=== PATIENT | female | born 1935 | race Caucasian/White ===

== ENCOUNTER 2017-04-21 08:07 | Outpatient (CLI) | payer MEDICARE, OTHER ==
[2017-04-21 10:58] LABS: Hematocrit 43.4 % (36.0-47.0); Red Blood Cell (RBC) Count 4.82 mill/uL (4.20-5.40); White Blood Cell (WBC) Count 4.5 thou/uL (4.8-10.8)
[2017-04-21 11:10] LABS: Prothrombin Time 13.4 SEC (12.0-14.7)
[2017-04-21 11:25] LABS: Anion Gap 12 mmol/L (10-20); BUN (Urea Nitrogen) 12 mg/dL (9.8-20.1); Calc. Creatinine Clearance 0 mL/min (70-130); Calcium 9.7 mg/dL (7.8-10.44); Carbon Dioxide 25 mmol/L (23-31); Chloride 105 mmol/L (98-107); Estimated GFR-MDRD 80
[2017-04-21 11:33] LABS: Bilirubin Negative (Negative); Blood, Urine Negative (Negative); Glucose, Urine (Dipstick) Negative (Negative); Ketone, Urine Negative (Negative); Nitrite Negative (Negative); Protein, Urine (Dipstick) Negative (Neg-Trace); Urobilinogen 0.2 mg/dL (0.2-1.0)
[2017-04-21 11:38] LABS: Bacteria/HPF None Seen HPF (None Seen); Hyaline Casts/LPF 0-3 HYALINE CAST LPF (0-3 Hyaline); RBC/HPF 0-3 HPF (0-3); Squamous Epithelial None Seen HPF (0-3); WBC/HPF 0-3 HPF (0-3)
== END 2017-04-21 08:08 | disposition home or self-care (01) ==
LOC: LABBT 08:07
PROVIDERS: ATTEND Orthopaedic Surgery
DX: Z01.818 Encounter for other preprocedural examination (principal); M19.012 Primary osteoarthritis, left shoulder
CPT/HCPCS: 80048; 81001; 85027; 85610; 86850; 86900; 86901; 87081; 93005; 93010

== ENCOUNTER 2017-04-21 08:30 | Inpatient (IN) | payer MEDICARE, OTHER ==
[2017-04-21 08:28] VITALS: BMI 35.6
[2017-04-23] MEDS ORDERED: Tranexamic Acid 1,000 MG/100 ML BAG ONE ×2 (06:08→10:05)
[2017-04-23] MEDS ORDERED: Ropivacaine 0.2% HCl/PF 20 ML ONE (06:27)
[2017-04-23] MEDS ORDERED: Lidocaine 1% (PF) 30 ML VIAL ONE (06:27)
[2017-04-23] MEDS ORDERED: Fentanyl 100 MCG/2 ML VIAL ONE ×2 (06:27→10:35)
[2017-04-23] MEDS ORDERED: Midazolam HCl 2 mg/2 ml Vial ONE (06:27)
[2017-04-23] MEDS ORDERED: traMADol HCl 50 MG TAB PO PRN (07:13)
[2017-04-23] MEDS ORDERED: Ketorolac Tromethamine 30 MG/ML VIAL IVP PRN (07:13)
[2017-04-23] MEDS ORDERED: Promethazine HCl 25 MG/ML VIAL IM PRN ×2 (07:13→08:04)
[2017-04-23] MEDS ORDERED: Ropivacaine 0.2% 550 ML 550 ML NERVE BLCK SCH (07:13)
[2017-04-23] MEDS ORDERED: Zolpidem Tartrate 5 MG TAB PO PRN (07:13)
[2017-04-23] MEDS ORDERED: Ondansetron HCl/PF 4 MG/2 ML Vial IVP PRN ×2 (07:13→08:04)
[2017-04-23] MEDS ORDERED: HYDROcodone/Acetaminophen 7.5/325 mg Tablet PO PRN (07:16)
--- NOTE | 2017-04-23 07:25 | HP ---
CHIEF COMPLAINT: Left shoulder pain. HISTORY OF PRESENT ILLNESS: Ms. Bender is a pleasant right hand dominant female. Pain can be 8-9/10, painful last 2 years. She describes the pain as constant, severe pain with elevation, external rotation, pain is worse with activity. Prior treatment and then says some relief. She has no injury. She has some weakness. Denies history of shoulder and neck pain. The patient denied a cardiac history, no shortness of breath, but did have a positive EKG for atrial fibrillation. PAST MEDICAL HISTORY: Atrial fibrillation, pain in the left arm and hands, past osteoporosis. PAST SURGICAL HISTORY: None. CURRENT MEDICATIONS: Calcium, fish oil, vitamin B complex, vitamins, aspirin 81 mg. ALLERGIES: No known drug allergies. SOCIAL HISTORY: Nonsmoker, nondrinker. [place] lady that lives in the [facility]. PHYSICAL EXAMINATION: GENERAL: Alert and oriented female in no acute distress, resting comfortably in bed. EXTREMITIES: The patient had limited motion, elevation 40 and ER 20. She has got intact deltoid, her rotator cuff strength is 4-5. The patient has positive Spurling's, positive Knowles, neurovascularly intact, 2+ radial pulse. X-rays showed a grossly deformed, osteophytes space with B1 deformity. IMPRESSION: 1. Left shoulder osteoarthritis. 2. Atrial fibrillation. ASSESSMENT AND PLAN: The patient had a discussion with her primary care provider as well as a geological science teacher at [facility] about operative risks and benefits of the left shoulder as well as medical management based on her EKG findings. The patient's family desired to proceed with surgery. She has left shoulder arthritis. I discussed with her family the risks and benefits of a left total shoulder versus reverse shoulder. I discussed with biceps tenodesis. I discussed that I would perform a reverse if I felt the rotator cuff insufficient. I was concerned about its potential ability to repair or heal or potential risk of tearing or it looked atrophied or damaged in any way. Given the patient age this is the likely plan of action. She understands the duration of implants life expectancy, she understands I would perform biceps tenodesis, risk of destiny deformity. She understands risks and benefits of surgery, pain, scar, bleeding, infection, damage to vital structures, decreased range of motion, strength, and deltoid pain, fracture, destiny deformity, loss of life or limb. The patient understands the risks and benefits. We will take her to the operating suite for left shoulder replacement and biceps tenotomy. ELLEN
[2017-04-23] MEDS ORDERED: PHENYLEPHRINE-NS 100 MCG/ML 10 ML SYRINGE ONE (07:34)
[2017-04-23] MEDS ORDERED: ePHEDrine/0.9% NaCl/PF SYRINGE 50 mg/10 ml ONE (07:34)
[2017-04-23] MEDS ORDERED: Glycopyrrolate 0.2 MG/ML 5 ML SYRINGE ONE (07:34)
[2017-04-23] MEDS ORDERED: Propofol 200 MG/20 ML VIAL ONE (07:34)
[2017-04-23] MEDS ORDERED: Ondansetron HCl/PF 4 MG/2 ML Vial ONE (07:34)
[2017-04-23] MEDS ORDERED: Promethazine HCl 25 MG/ML VIAL SLOW IVP PRN (08:04)
[2017-04-23] MEDS ORDERED: Tranexamic Acid 1,000 MG in Sodium Chloride 0.9% 100 ML IVPB SCH (09:30)
[2017-04-23] MEDS ORDERED: Acetaminophen 650 MG Suppository PR PRN (09:58)
[2017-04-23] MEDS ORDERED: Milk Of Magnesia 30 ML UDCUP PO PRN (10:31)
[2017-04-23] MEDS ORDERED: Acetaminophen 325 MG TAB PO PRN (10:31)
[2017-04-23] MEDS ORDERED: Bisacodyl 10 MG SUPP PR PRN (10:31)
--- NOTE | 2017-04-23 10:53 | OP ---
DATE OF PROCEDURE: 04/23/2017 PREOPERATIVE DIAGNOSIS: 1. Left shoulder osteoarthritis. 2. Biceps tendonopathy. POSTOPERATIVE DIAGNOSES: 1. Left shoulder osteoarthritis, insufficient cuff. 2. Biceps tendonopathy. PROCEDURE PERFORMED: 1. Left reverse shoulder arthroplasty. 2. Open biceps tenodesis. STAFF: Palmer Andrew M.D. CLEANER OPERATOR: Efren Crabtree PA-C. ANESTHESIA: Jeff. The patient received general endotracheal intubation interscalene block. ESTIMATED BLOOD LOSS: 300 mL. TOURNIQUET TIME: None. IMPLANTS: A Tornier 25 mm baseplate, 2 locking, 2 nonlocking screws, 36 mm eccentric sphere, 2B fle xed stem, 0 high offset tray and a 6 mm poly insert. ANTIBIOTICS: Two grams Ancef, TXA 1 gram. COMPLICATIONS: Partial tearing of the anterior fibers of deltoid. HISTORY OF PRESENT ILLNESS: Ms. Bender is an 82-year-old female who presented to me with left should er pain for over 2 years. The patient had active elevation of 40 degrees, external rotation of 20 d egrees. She did have cuff strength, but had minimal range of motion. The patient at 82, I discusse d with the family the risks and benefits of a left total shoulder versus reverse shoulder arthroplas ty, biceps tenodesis. I discussed that given the patient's age, I am always concerned about potenti al cuff rupture in an arthritic shoulder with a total shoulder. I discussed that the patient might benefit better from a reverse shoulder arthroplasty. I said I would perform a total shoulder replac ement, biceps tenodesis. They understood the risks and benefits of both procedures to include pain, scar, bleeding, infection, damage to vital structures, decreased range of motion or strength, need for further surgeries, loss of life or limb, infection, need for revision surgery, life expectancy o f implant to be approximately 10 years. They understood these risks and benefits and elected to pro ceed. The patient had been cleared by her primary care provider and had a conversation with her cardiologi st for her new onset atrial fibrillation. They elected to treat it after completion of surgery. PROCEDURE NOTE: After timeout was performed, the patient's left upper extremity designated as the o perative site, based on sight, consents. She was placed in a beach chair position. The patient's l eft shoulder was prepped and draped in sterile fashion. A deltopectoral incision was made. The olgai n was taken medially, came down through and came from the conjoint tendon, exposed the biceps, took down the patient's subscapularis, which was ratty and thin anteriorly as well as some significant os teophyte prominence. We took the capsule off the inferior aspect of the neck, removed osteophytes t o expose the neck. I see her cuff was intact, but there was some capsular that had been released, a nd the cuff did look thin. We cut at our B cut for our stem, removed the osteophytes. I looked at the head. Given the patient's look of her cuff, I was concern about future rupture. Given the cornelius ent is 82 years old I felt that it would be best to perform a reverse as a primary procedure. I the n machined our, we placed our center guide, broached and placed a 3B stem, placed a nail, we moved t he shoulder. The patient was exposed the glenoid. We then moved and we let 360 degree release of t he labrum excised the biceps stump. After removing this, we then placed our center hole inferiorly for an A25 stem. I felt that we still had some inferior osteophyte versus glenoid. I felt that it would be best to place a high offset glenosphere. We then placed our larger drill bit, reamed and c leaned up the glenosphere. We then placed our baseplate which was tapped into place, the patient domínguez d 4 screws placed, 2 anterior locking, 2 nonlocking inferior nonlocking we then placed our 2 mm off baseplate into place, screwed it into position. We then dislocated the shoulder back into position for reaming. We could not reduce it therefore, we made a 3 mm cut right down at the base of the cuf f, reamed. We ended up placing a 2B stem which we trialed and reduced, had good reduction, I felt t hat I liked the overall alignment and position, we closed with this, we removed, we placed our final implant, reduced it into position. We closed the subscapularis with #5 Ethibond, tenodesed the bic eps into the difference. We did not close the rotator interval to tighten the shoulder. We then wa shed, closed the rent that we had made in the deltoid with Vicryl to close down a scar plane. We cl osed the deltopectoral interval subcu and placed hay. The patient will begin elbow range of motion, wrist, and hand motion. The patient will follow up in 2 weeks for hay and will be admitted overnight for pain control. She is on aspirin tomorrow.
--- NOTE | 2017-04-23 12:24 | RAD ---
TWO VIEWS LEFT SHOULDER: Date: 04-23-17 Comparison: None. History: Left total shoulder arthroplasty. FINDINGS: There is a left shoulder arthroplasty present. No evidence for dislocation or hardware failure. Post -operative gas and post-operative cutaneous stables are noted. IMPRESSION: Status post left total shoulder arthroplasty. POS: [facility]
[2017-04-23] MEDS: Dextrose 5 %-0.45 % NaCl 1,000 ML IV SCH (17:00)
[2017-04-23] MEDS: traMADol HCl 50 MG TAB PO PRN (18:21)
[2017-04-23] MEDS: Stress 600 With Zinc 1 TAB PO SCH (20:37)
[2017-04-23] MEDS: HYDROcodone/Acetaminophen 7.5/325 mg Tablet PO PRN (20:37)
[2017-04-23] MEDS: Prenatal Vitamin 1 TAB PO SCH (20:37)
[2017-04-23] MEDS: Famotidine 20 MG TAB PO SCH (20:38)
[2017-04-23] MEDS: Calcium Carbonate + Vit D 1 TAB PO SCH (20:38)
[2017-04-24] MEDS: HYDROcodone/Acetaminophen 7.5/325 mg Tablet PO PRN ×2 (00:52→05:18)
[2017-04-24] MEDS: Dextrose 5 %-0.45 % NaCl 1,000 ML IV SCH (05:14)
[2017-04-24 06:10] LABS: Hematocrit 36.7 % (36.0-47.0)
[2017-04-24] MEDS: Fentanyl 100 MCG/2 ML VIAL SLOW IVP PRN (07:48)
[2017-04-24] MEDS: Famotidine 20 MG TAB PO SCH ×2 (07:48→20:01)
[2017-04-24] MEDS: Aspirin 325 MG TAB PO SCH (07:49)
[2017-04-24] MEDS ORDERED: Fentanyl 100 MCG/2 ML VIAL ONE (11:32)
[2017-04-24] MEDS: Calcium Carbonate + Vit D 1 TAB PO SCH (20:01)
[2017-04-24] MEDS: Prenatal Vitamin 1 TAB PO SCH (20:01)
[2017-04-24] MEDS: Stress 600 With Zinc 1 TAB PO SCH (20:01)
[2017-04-24] MEDS: traMADol HCl 50 MG TAB PO PRN (22:07)
[2017-04-25] MEDS: Fentanyl 100 MCG/2 ML VIAL SLOW IVP PRN (00:05)
[2017-04-25] MEDS: Dextrose 5 %-0.45 % NaCl 1,000 ML IV SCH ×2 (00:48→08:41)
[2017-04-25 07:41] VITALS: BP 137/88; TEMP 98
[2017-04-25] MEDS: Aspirin 325 MG TAB PO SCH (08:31)
[2017-04-25] MEDS: Famotidine 20 MG TAB PO SCH (08:31)
[2017-04-25] MEDS: traMADol HCl 50 MG TAB PO PRN (08:37)
== END 2017-04-25 10:40 | disposition home or self-care (01) | DRG 483 ==
LOC: SURG A 04-23 05:40 → SURG B 04-23 10:48
PROVIDERS: ADMIT Orthopaedic Surgery; ATTEND Orthopaedic Surgery
PROC: 0RRK00Z Replacement of Left Shoulder Joint with Reverse Ball and Socket Synthetic Substitute, Open Approach (ICD-10-PCS; principal; 2017-04-23)
PROC: 3E0T3BZ Introduction of Anesthetic Agent into Peripheral Nerves and Plexi, Percutaneous Approach (ICD-10-PCS; 2017-04-23)
DX: M19.012 Primary osteoarthritis, left shoulder (principal); I48.91 Unspecified atrial fibrillation
CPT/HCPCS: 36415; 80048; 81001; 85014; 85018; 85027; 85610; 86850; 86900; 86901; 87081; 93005; 93010; A4306; G8978-GP-CJ; G8979-GP-CI; G8987-GO-CK; G8988-GO-CI; J2001; J2250; J2405; J2704; J2795; J3010

== ENCOUNTER 2017-04-29 13:17 | Inpatient (IN) | payer MEDICARE, OTHER ==
[2017-04-29] MEDS ORDERED: ISOVUE-370 76%-LOCM 1 ML ONE (13:32)
[2017-04-29] MEDS ORDERED: Metoprolol Tartrate 5 MG/5 ML VIAL ONE (13:41)
[2017-04-29] MEDS ORDERED: Metoprolol Tartrate 50 MG TAB ONE (13:41)
[2017-04-29 13:56] LABS: #Basophils 0.1 thou/uL (0.0-0.2); #Eosinphils 0.1 thou/uL (0.0-0.7); #Lymphocytes 1.8 thou/uL (1.20-3.40); #Monocytes 0.7 thou/uL (0.11-0.59); #Neutrophils 4.8 thou/uL (1.40-6.50); %Basophils 0.7 % (0.0-1.0); %Eosinophils 1.6 % (0.0-10.0); %Lymphocytes 24.2 % (21.0-51.0); %Monocytes 9.6 % (0.0-10.0); Hematocrit 39.5 % (36.0-47.0); Mean Platelet Volume 7.5 fL (7.4-10.4); Red Blood Cell (RBC) Count 4.43 mill/uL (4.20-5.40); White Blood Cell (WBC) Count 7.5 thou/uL (4.8-10.8)
[2017-04-29 14:28] LABS: ALT (SGPT) 20 U/L (8-55); AST (SGOT) 35 U/L (5-34); Alkaline Phosphatase 78 U/L (40-150); Anion Gap 12 mmol/L (10-20); BUN (Urea Nitrogen) 13 mg/dL (9.8-20.1); Bilirubin, Total 0.7 mg/dL (0.2-1.2); CK (CPK) 98 U/L (29-168); Calc. Creatinine Clearance 0 mL/min (70-130); Calcium 9.3 mg/dL (7.8-10.44); Carbon Dioxide 30 mmol/L (23-31); Chloride 97 mmol/L (98-107); Estimated GFR-MDRD 77; Globulin 2.9 g/dL (2.4-3.5); Lipase 22 U/L (8-78); Magnesium 2.1 mg/dL (1.6-2.6); Protein, Total 6.5 g/dL (6.0-8.3)
[2017-04-29 14:31] LABS: Troponin I 0.082 ng/mL (< 0.028)
--- NOTE | 2017-04-29 15:02 | RAD ---
ONE VIEW CHEST: History: Chest tightness and difficulty breathing. Left shoulder surgery on . Comparison: None. FINDINGS: Portable upright chest demonstrates an enlarged cardiac silhouette. The pulmonary vessels and hilum are normal. Elevation of the left hemidiaphragm with blunting of the left costophrenic angle. Adequa te aeration of the upper lungs. No pneumothorax or osseous abnormalities. IMPRESSION: 1. Cardiomegaly. 2. Pleural and parenchymal changes of the left lung base. A component of atelectasis is favored give n elevation of the left hemidiaphragm. Continued surveillance is recommended. POS: [facility]
[2017-04-29] MEDS ORDERED: Diltiazem HCl 125 MG, Admixture Fee 1 EACH in Sodium Chloride 0.9% 100 ML IVPB SCH (15:30)
[2017-04-29] MEDS ORDERED: Enoxaparin Sodium 100 MG/ML SYRINGE ONE (15:38)
--- NOTE | 2017-04-29 16:08 | CT ---
CT ANGIOGRAM OF THE CHEST: History: Substernal chest pain. Shortness of breath. Comparison: None. Technique: CT angiogram of the chest is performed in the axial plane. Coronal and bilateral oblique 3D reformatted images are submitted. FINDINGS: No mediastinal mass, lymphadenopathy, or hematoma. Heart is enlarged. No significant pericardial flu id. Suboptimal evaluation of the aorta and upper solid organs due to timing of bolus. Small bilateral pleural effusions with dependent atelectatic changes. No suspicious masses or consol idation. No pneumothorax. Trachea and central bronchi are patent. There are no osteoblastic or osteolytic lesions. There is adequate contrast opacification of the pulmonary arterial system at the level of the segmen darwin arteries. There is a large saddle thrombus involving the distal/terminal left main pulmonary art regina. The thrombus extends into the lobar, segmental branches involving the left upper lobe, left low er lobe. Additional thrombus is noted in the right upper lobe, middle lobe and right lower lobe segm ental branches. IMPRESSION: 1. Bilateral pulmonary emboli as detailed above. 2. Exam discussed with Dr. Cazares 04-29-17 at 3:33 p.m. Code CR POS: [facility]
--- NOTE | 2017-04-29 16:55 | HP ---
PRIMARY CARE PHYSICIAN: Dr. Александр Steiner. REASON FOR ADMISSION: Bilateral pulmonary embolism, atrial fibrillation with rapid ventricular resp onse and chest pain. HISTORY OF PRESENT ILLNESS: An 82-year-old female with a history of atrial fibrillation, which was recently diagnosed. She had recently surgery for left shoulder pain. The patient had a left should er osteoarthritis and patient required a left reverse shoulder arthroplasty and open biceps tendinos is. This patient's strawhat inspector and packer is Edwin Harris Liya and he cleared her for surgery. After surgery, patient was pretty much sedentary. Today, she came to the emergency room with chest pain. She was feeling shortness of breath. Her chest pain was predominantly in her central locatio n associated with dizziness and mild shortness of breath. She denies any cough. She denies any syn cope. She denies any pleuritic chest pain. She denies any hemoptysis. She denies any lower extrem ity edema or calf tenderness. The patient reports that she has new diagnosis of atrial fibrillation before surgery during preopera tive evaluation. At that time, the patient was started on aspirin therapy. The patient's primary c ardiologist is Dr. Francis in [place] and he is going to start anticoagulation therapy within a week, but before she goes to see him, patient developed chest pain and that is why she came to [facility] Emergency Room today. REVIEW OF SYSTEMS: The following complete review of systems was negative, unless otherwise mentione d in the HPI or below: CONSTITUTIONAL: Weight loss or gain, ability to conduct usual activities. SKIN: Rash, itching. EYES: Double vision, pain. ENT/MOUTH: Nose bleeding, neck stiffness, pain, tenderness. CARDIOVASCULAR: Palpitations, dyspnea on exertion, orthopnea. RESPIRATORY: Shortness of breath, wheezing, cough, hemoptysis, fever or night sweats. GASTROINTESTINAL: Poor appetite, abdominal pain, heartburn, nausea, vomiting, constipation, or diar deshawn. GENITOURINARY: Urgency, frequency, dysuria, nocturia. MUSCULOSKELETAL: Pain, swelling. NEUROLOGIC/PSYCHIATRIC: Anxiety, depression. ALLERGY/IMMUNOLOGIC: Skin rash, bleeding tendency. Please see my HPI for pertinent positives and negatives. All other review of system reviewed and ne gative except as mentioned in the HPI. PAST MEDICAL HISTORY: New diagnosis of atrial fibrillation on aspirin therapy, shoulder osteoarthri tis. PAST SURGICAL HISTORY: Left shoulder replacement on 04/23/2017, cardiac catheterization. PAST PSYCHIATRIC HISTORY: Reviewed and negative. SOCIAL HISTORY: The patient lives at home with family. No history of tobacco, alcohol or illicit d rug abuse. FAMILY HISTORY: No strong family history of premature coronary artery disease, stroke or cancer. N o family history of blood clot disorder. ALLERGIES: No known drug allergies. CURRENT HOME MEDICATIONS: The patient is taking aspirin 325 mg p.o. daily and tramadol 50 mg q.6 ho urly p.r.n. EMERGENCY ROOM COURSE: Patient has received Lovenox 1 mg per kg, metoprolol 5 mg IV push, and IV fl uids 500 mL PHYSICAL EXAMINATION: VITAL SIGNS: On arrival, blood pressure 97/60, pulse 120 and irregular, respiratory rate 20, temper ature 98.7, saturation 86% on room air. Weight 113.4 kilograms. GENERAL: Patient is currently alert, awake, no obvious acute distress. HEAD: Normocephalic, atraumatic. EYES: Pupils round, reactive to light. Extraocular muscles intact. ENT: Oropharynx within normal limits. Moist mucous membranes. No oral lesions. No pharyngeal regina thema, no exudate. NECK: Supple. Range of motion is normal. No meningeal signs of irritation. LUNGS: Clear to auscultation without any rhonchi or rales. CARDIAC: S1, S2, irregularly irregular. No murmur, no gallop, no rub. ABDOMEN: Obesity present. Bowel sounds present. Nontender, nondistended. No organomegaly, no mas s, no suprapubic tenderness. BACK: Unremarkable, no CVA tenderness. EXTREMITIES: Upper extremity: Passive movement of all joints are normal. Lower extremity: No nathalia ma. Good peripheral pulsation. No calf tenderness. SKIN: No skin rash. HEMATOLOGICAL SYSTEM: No lymphadenopathy. NEUROLOGIC: Nonfocal examination. The patient moves all 4 limbs. Plantar bilateral flexor. PSYCHIATRIC: Normal affect. SIGNIFICANT LABS: 1. EKG based on my review, atrial fibrillation with rapid ventricular response. Chest x-ray: Card iomegaly, chronic changes without any acute process. CT angio is positive for bilateral pulmonary e mbolism. 2. CBC: WBC 7.5, hemoglobin 12.7, platelets 173. BMP: Sodium 135, potassium 4.3, chloride 97, ca rbon dioxide 30, BUN 13, creatinine 0.72, glucose 115, calcium 9.3, magnesium 2.1. 3. LFT: AST 35, ALT 20, alkaline phosphatase 78, albumin 3.6. CK is 98, CK-MB 2.3, troponin I 0.0 82. BNP 577.9, lipase 22. ASSESSMENT AND PLAN/IMPRESSION: 1. Acute hypoxic respiratory failure. This patient was saturating 86% on room air. Currently with oxygen, her saturation is 92%. We will monitor her saturation while in hospital. This patient acu te hypoxic respiratory failure related with pulmonary embolism. 2. Atrial fibrillation with rapid ventricular response. Patient's rate is under control after meto prolol 5 mg. I will continue metoprolol 12.5 mg twice daily. We will obtain echocardiography. Car diology will be consulted and we will monitor on telemetry floor. If patient gets atrial fibrillati on with rapid ventricular response, then we will start low dose Cardizem drip. 3. Bilateral pulmonary embolism. We will check stool for guaiac to rule out any occult bleeding. We will do ultrasound of bilateral lower extremity to rule out deep venous thrombosis. This patient has immobilization and recent surgery. There are the risk factor for pulmonary embolism. The cornelius ent will be given Lovenox 1 mg per kg subQ twice daily. We will start warfarin therapy tomorrow. 4. Hypotension. Patient has relatively low blood pressure. We will monitor patient's hemodynamics while in hospital. If blood pressure remains when the patient gets atrial fibrillation with rapid ventricular response, then we will consider giving her digoxin therapy. 5. Morbid obesity. Dietary education given, weight loss education given. Healthy lifestyle measur es discussed with the patient. 6. Deep venous thrombosis prophylaxis. Patient is already on full dose of Lovenox therapy. 7. Gastrointestinal prophylaxis. The patient is on Pepcid 20 mg twice daily. 8. Elevated troponin. We will do serial cardiac enzymes x3 and rule out acute coronary syndrome, l ikely due to demand ischemia from pulmonary embolism and atrial fibrillation. 9. Elevated BNP, likely due to diastolic dysfunction. We will obtain echocardiography. 10. CODE STATUS: Patient is FULL CODE. Patient's daughter is surrogate decision maker.
[2017-04-29] MEDS ORDERED: Loratadine 10 MG TAB PO PRN (17:03)
[2017-04-29] MEDS ORDERED: Sodium Chloride 0.65% Nasal 44 ML BOT EA NARE PRN (17:03)
[2017-04-29] MEDS ORDERED: Diabetic Tussin 200 MG/10 ML UDCUP PO PRN (17:03)
[2017-04-29] MEDS ORDERED: Chloraseptic Spray 180 ml Bottle PO PRN (17:03)
[2017-04-29] MEDS ORDERED: Acetaminophen 325 MG TAB PO PRN (17:03)
[2017-04-29] MEDS ORDERED: Ondansetron HCl/PF 4 MG/2 ML Vial IVP PRN (17:03)
[2017-04-29] MEDS ORDERED: Mag-Al 1200 mg/1200 mg/30 ML UDCUP PO PRN (17:03)
[2017-04-29] MEDS ORDERED: Zolpidem Tartrate 5 MG TAB PO PRN (17:03)
[2017-04-29] MEDS ORDERED: Eucerin (Mineral Oil/Petrolatum,White) 30 gm Jar TOP PRN (17:03)
[2017-04-29] MEDS ORDERED: Loperamide HCl 2 MG CAP PO PRN (17:03)
[2017-04-29] MEDS ORDERED: Ondansetron ODT 4 MG TAB PO PRN (17:03)
[2017-04-29] MEDS ORDERED: Milk Of Magnesia 30 ML UDCUP PO PRN (17:03)
[2017-04-29] MEDS ORDERED: hydrALAZINE 20 MG/ML VIAL SLOW IVP PRN (17:03)
[2017-04-29] MEDS ORDERED: Nitroglycerin 0.4 MG TAB (25 Tab Bottle) SL PRN (17:03)
[2017-04-29] MEDS ORDERED: Artificial Tears 18 DROP/0.9 ML EA EYE PRN (17:03)
[2017-04-29] MEDS ORDERED: Senokot 8.6 MG TAB PO PRN (17:03)
[2017-04-29] MEDS ORDERED: Aspirin 325 MG TAB PO SCH (17:15)
[2017-04-29 18:06] LABS: Troponin I 0.098 ng/mL (< 0.028)
[2017-04-29 19:57] VITALS: BMI 44.6
[2017-04-29 20:57] LABS: Troponin I 0.054 ng/mL (< 0.028)
[2017-04-29] MEDS: Metoprolol Tartrate 25 MG TAB PO SCH (21:38)
[2017-04-29] MEDS: Famotidine 20 MG TAB PO SCH (21:38)
--- NOTE | 2017-04-30 00:10 | ULT ---
BILATERAL LOWER EXTREMITY VENOUS DOPPLER ULTRASOUND: 04/29/17 HISTORY: Bilateral pulmonary embolism. TECHNIQUE: Pérez scale ultrasound with color flow and spectral doppler imaging of the deep venous systems of the lower extremities performed bilaterally. FINDINGS: There is a thrombus in the right greater saphenous vein in the proximal thigh extending to the mid c jonathan and in the right lesser saphenous vein behind the calf proximally. There is good flow, compressi on and augmentation in the dependent right lower extremity. There is intraluminal thrombus in the left common femoral and greater saphenous veins in the proxima l thigh and in the left posterior tibial vein in the mid calf. IMPRESSION: 1. Superficial vein thrombus in the right lower extremity. 2. DVT and superficial vein thrombosis in the left lower extremity. Code T POS: [facility]
[2017-04-30 06:31] LABS: #Basophils 0.1 thou/uL (0.0-0.2); #Eosinphils 0.3 thou/uL (0.0-0.7); #Lymphocytes 1.6 thou/uL (1.20-3.40); #Monocytes 0.5 thou/uL (0.11-0.59); #Neutrophils 4.2 thou/uL (1.40-6.50); %Basophils 0.8 % (0.0-1.0); %Eosinophils 4.4 % (0.0-10.0); %Lymphocytes 23.8 % (21.0-51.0); %Monocytes 8.1 % (0.0-10.0); Hematocrit 39.1 % (36.0-47.0); Mean Platelet Volume 7.6 fL (7.4-10.4); Red Blood Cell (RBC) Count 4.33 mill/uL (4.20-5.40); White Blood Cell (WBC) Count 6.6 thou/uL (4.8-10.8)
[2017-04-30 06:54] LABS: Anion Gap 12 mmol/L (10-20); BUN (Urea Nitrogen) 10 mg/dL (9.8-20.1); Calc. Creatinine Clearance 122 mL/min (70-130); Carbon Dioxide 28 mmol/L (23-31); Chloride 102 mmol/L (98-107); Cholesterol 141 mg/dl (< 200 Desired); Estimated GFR-MDRD 85; LDL Cholesterol, Calculated 87 mg/dL
[2017-04-30 06:58] LABS: Troponin I 0.045 ng/mL (< 0.028)
--- NOTE | 2017-04-30 09:46 | PDOC.PN ---
- Subjective Encounter Start Date: 04/30/17 Encounter Start Time: 07:10 -: old records requested/rev pt is feeling dyspnea, no chest pain today, still has afib but rate controlled, no leg pain - Objective Resuscitation Status: Resuscitation Status FULL:Full Resuscitation MAR Reviewed: Yes Vital Signs & Weight: Vital Signs (12 hours) Temp Pulse Resp BP Pulse Ox 04/30/17 08:00 97.8 F 77 14 142/78 H 98 04/30/17 04:00 97.7 F 74 18 130/72 97 04/30/17 00:00 98.2 F 79 18 129/70 96 I&O: 04/29/17 04/30/17 05/01/17 06:59 06:59 06:59 Intake Total 240 Output Total 650 Balance -410 Result Diagrams: 04/30/17 06:09 04/30/17 06:09 Radiology Reviewed by me: Yes (US leg-DVT) EKG Reviewed by me: Yes (afib) Phys Exam - Physical Examination Constitutional: NAD HEENT: PERRLA, moist MMs, sclera anicteric Neck: no JVD, supple Respiratory: no wheezing, no rales, no rhonchi Cardiovascular: no significant murmur, irregular Gastrointestinal: soft, non-tender, no distention, positive bowel sounds Musculoskeletal: no edema, pulses present left shoulder in sling Neurological: non-focal, normal sensation, moves all 4 limbs Psychiatric: normal affect, A&O x 3 Skin: no rash, normal turgor Dx/Plan (1) Acute respiratory failure with hypoxia Code(s): J96.01 - ACUTE RESPIRATORY FAILURE WITH HYPOXIA Status: Acute (2) Atrial fibrillation Code(s): I48.91 - UNSPECIFIED ATRIAL FIBRILLATION Status: Acute Qualifiers: Atrial fibrillation type: chronic Qualified Code(s): I48.2 - Chronic atrial fibrillation (3) Bilateral pulmonary embolism Code(s): I26.99 - OTHER PULMONARY EMBOLISM WITHOUT ACUTE COR PULMONALE Status : Acute (4) DVT (deep venous thrombosis) Code(s): I82.409 - ACUTE EMBOLISM AND THOMBOS UNSP DEEP VN UNSP LOWER EXTREMITY Status: Acute Qualifiers: DVT location: lower extremity Affected thrombotic vein of extremity: popliteal Laterality: left (5) Demand ischemia of myocardium Code(s): I24.8 - OTHER FORMS OF ACUTE ISCHEMIC HEART DISEASE Status: Acute (6) Elevated brain natriuretic peptide (BNP) level Code(s): R79.89 - OTHER SPECIFIED ABNORMAL FINDINGS OF BLOOD CHEMISTRY Status : Acute (7) Morbid obesity with BMI of 40.0-44.9, adult Code(s): E66.01 - MORBID (SEVERE) OBESITY DUE TO EXCESS CALORIES; Z68.41 - BODY MASS INDEX (BMI) 40.0-44.9, ADULT Status: Chronic (8) DJD of left shoulder Code(s): M19.012 - PRIMARY OSTEOARTHRITIS, LEFT SHOULDER Status: Chronic Qualifiers: Osteoarthritis type: unspecified Qualified Code(s): M19.012 - Primary osteoarthritis, left shoulder Comment: s/p surgery - Plan cont current plan of care * . Review of Systems - Review of Systems ENT: negative: Ear Pain, Ear Discharge, Nose Pain, Nose Discharge, Nose Congestion, Mouth Pain, Mouth Swelling, Throat Pain, Throat Swelling, Other Respiratory: Shortness of Breath, SOB with Excertion. negative: Cough, Dry, Hemoptysis, Pleuritic Pain, Sputum, Wheezing Cardiovascular: negative: Chest Pain, Palpitations, Orthopnea, Paroxysmal Noc. Dyspnea, Edema, Light Headedness, Other Gastrointestinal: negative: Nausea, Vomiting, Abdominal Pain, Diarrhea, Constipation, Melena, Hematochezia, Other Genitourinary: negative: Dysuria, Frequency, Incontinence, Hematuria, Retention , Other Musculoskeletal: negative: Neck Pain, Shoulder Pain, Arm Pain, Back Pain, Hand Pain, Leg Pain, Foot Pain, Other - Medications/Allergies Allergies/Adverse Reactions: Allergies Allergy/AdvReac Type Severity Reaction Status Date / Time No Known Allergies Allergy Verified 04/21/17 08:28 Medications: Current Medications Acetaminophen (Tylenol) 650 mg PO Q4H PRN PRN Reason: Headache/Fever or Pain Hydrocodone Bitart/Acetaminophen (Emmet 5/325) 1 tab PO Q4H PRN PRN Reason: Moderate Pain (4-6) Al Hydroxide/Mg Hydroxide (Maalox) 30 ml PO Q6H PRN PRN Reason: Heartburn or Indigestion Artificial Tears (Tears Naturale) 0 drop EA EYE PRN PRN PRN Reason: Dry Eyes Aspirin (Aspirin) 325 mg PO DAILY [facility] Enoxaparin Sodium (Lovenox) 120 mg SC 0900,2100 [facility] Famotidine (Pepcid) 20 mg PO BID [facility] Last Admin: 04/29/17 21:38 Dose: 20 mg Guaifenesin (Robitussin Sf) 200 mg PO Q4H PRN PRN Reason: Cough Hydralazine HCl (Apresoline) 10 mg SLOW IVP Q4H PRN PRN Reason: Systolic BP > 180 Diltiazem HCl 125 mg/Miscellaneous Medication 1 each/ Sodium Chloride 125 mls @ 2.5 mls/hr IVPB INF NARESH PRN Reason: Protocol Influenza Virus Vaccine (Fluzone High-Dose Syr) 0.5 ml IM .ONCE ONE Stop: 04/30/17 21:01 Loperamide HCl (Imodium) 2 mg PO PRN PRN PRN Reason: Diarrhea/Loose Stools Loratadine (Claritin) 10 mg PO DAILYPRN PRN PRN Reason: Sinus Symptoms Magnesium Hydroxide (Milk Of Magnesium) 30 ml PO DAILYPRN PRN PRN Reason: Constipation Metoprolol Tartrate (Lopressor) 12.5 mg PO BID [facility] Last Admin: 04/29/17 21:38 Dose: 12.5 mg Mineral Oil/White Petrolatum (Eucerin Cream) 0 gm TOP BIDPRN PRN PRN Reason: Dry Skin Nitroglycerin (Nitrostat) 0.4 mg SL Q5MIN PRN PRN Reason: Chest Pain Ondansetron HCl (Zofran Odt) 4 mg PO Q6H PRN PRN Reason: Nausea/Vomiting Ondansetron HCl (Zofran) 4 mg IVP Q6H PRN PRN Reason: Nausea/Vomiting Phenol (Chloraseptic [place] 180 Ml Bot) 0 ml PO PRN PRN PRN Reason: Sore Throat Pneumococcal Polyvalent Vaccine (Pneumovax 23) 0.5 ml IM .ONCE ONE Stop: 04/30/17 21:01 Senna (Senokot) 2 tab PO HSPRN PRN PRN Reason: Constipation Sodium Chloride (Freeborn Nasal [place] 0.65%) 0 ml EA NARE QIDPRN PRN PRN Reason: Nasal Congestion Sodium Chloride (Flush - Normal Saline) 10 ml IVF Q12HR [facility] Last Admin: 04/29/17 21:39 Dose: 10 ml Sodium Chloride (Flush - Normal Saline) 10 ml IVF PRN PRN PRN Reason: Saline Flush Zolpidem Tartrate (Ambien) 5 mg PO HSPRN PRN PRN Reason: Insomnia
[2017-04-30] MEDS: Enoxaparin Sodium 120 MG/0.8 ML SYRINGE SC SCH ×2 (09:51→22:38)
[2017-04-30] MEDS: Metoprolol Tartrate 25 MG TAB PO SCH ×2 (09:52→22:38)
[2017-04-30] MEDS: Famotidine 20 MG TAB PO SCH ×2 (09:52→22:37)
[2017-04-30] MEDS: Aspirin 325 MG TAB PO SCH (09:52)
[2017-04-30] MEDS ORDERED: FLU VACC TS2017-18 (>65YR) 0.5 ML SYRINGE IM ONE (21:00)
[2017-05-01] MEDS: HYDROcodone/Acetaminophen 5/325 mg Tablet PO PRN ×2 (06:42→21:44)
[2017-05-01] MEDS: Metoprolol Tartrate 25 MG TAB PO SCH ×2 (09:39→21:45)
[2017-05-01] MEDS: Enoxaparin Sodium 120 MG/0.8 ML SYRINGE SC SCH (09:39)
[2017-05-01] MEDS: Aspirin 325 MG TAB PO SCH (09:42)
[2017-05-01] MEDS: Famotidine 20 MG TAB PO SCH ×2 (09:42→21:45)
--- NOTE | 2017-05-01 10:54 | PDOC.PN ---
- Subjective Encounter Start Date: 05/01/17 Encounter Start Time: 07:25 last night she had mild nose bleed, no more now, had chest tightness and dyspnea with exertion and after food Patient seen and examined. - Objective Resuscitation Status: Resuscitation Status FULL:Full Resuscitation MAR Reviewed: Yes Vital Signs & Weight: Vital Signs (12 hours) Temp Pulse Resp BP BP Pulse Ox 05/01/17 09:35 98.1 F 103 H 18 98/57 L 97 05/01/17 05:28 94 L 05/01/17 04:00 97.9 F 98 18 134/79 94 L 04/30/17 23:00 20 Weight Weight 212 lb 6.4 oz I&O: 04/30/17 05/01/17 05/02/17 06:59 06:59 06:59 Intake Total 918 240 Output Total 1500 800 Balance -582 -560 Result Diagrams: 04/30/17 06:09 04/30/17 06:09 Radiology Reviewed by me: Yes (echo) EKG Reviewed by me: Yes (afib with rvr) Phys Exam - Physical Examination Constitutional: NAD HEENT: PERRLA, moist MMs, sclera anicteric Neck: no JVD, supple Respiratory: no wheezing, no rales, no rhonchi Cardiovascular: no significant murmur, no rub, irregular Gastrointestinal: soft, non-tender, no distention, positive bowel sounds Musculoskeletal: no edema, pulses present left shoulder surgical site clean and in sling Neurological: non-focal, normal sensation, moves all 4 limbs Psychiatric: normal affect, A&O x 3 Skin: no rash, normal turgor Dx/Plan (1) Acute respiratory failure with hypoxia Code(s): J96.01 - ACUTE RESPIRATORY FAILURE WITH HYPOXIA Status: Acute (2) Atrial fibrillation Code(s): I48.91 - UNSPECIFIED ATRIAL FIBRILLATION Status: Acute Qualifiers: Atrial fibrillation type: chronic Qualified Code(s): I48.2 - Chronic atrial fibrillation (3) Bilateral pulmonary embolism Code(s): I26.99 - OTHER PULMONARY EMBOLISM WITHOUT ACUTE COR PULMONALE Status : Acute (4) DVT (deep venous thrombosis) Code(s): I82.409 - ACUTE EMBOLISM AND THOMBOS UNSP DEEP VN UNSP LOWER EXTREMITY Status: Acute Qualifiers: DVT location: lower extremity Affected thrombotic vein of extremity: popliteal Laterality: left (5) Demand ischemia of myocardium Code(s): I24.8 - OTHER FORMS OF ACUTE ISCHEMIC HEART DISEASE Status: Acute (6) Elevated brain natriuretic peptide (BNP) level Code(s): R79.89 - OTHER SPECIFIED ABNORMAL FINDINGS OF BLOOD CHEMISTRY Status : Acute (7) Morbid obesity with BMI of 40.0-44.9, adult Code(s): E66.01 - MORBID (SEVERE) OBESITY DUE TO EXCESS CALORIES; Z68.41 - BODY MASS INDEX (BMI) 40.0-44.9, ADULT Status: Chronic (8) DJD of left shoulder Code(s): M19.012 - PRIMARY OSTEOARTHRITIS, LEFT SHOULDER Status: Chronic Qualifiers: Osteoarthritis type: unspecified Qualified Code(s): M19.012 - Primary osteoarthritis, left shoulder Comment: s/p surgery - Plan cont current plan of care, plan discussed w/ family, PT/OT * continue lovenox and monitor * will change to eliquis tomorrow * pt does not want warfarin * will give digoxin 0.25 mg iv one time and po daily * medication reviewed as below * symptomatic treatment * start PT/OT * no plan for further for afib as per cardiology. Review of Systems - Review of Systems ENT: negative: Ear Pain, Ear Discharge, Nose Pain, Nose Discharge, Nose Congestion, Mouth Pain, Mouth Swelling, Throat Pain, Throat Swelling, Other Respiratory: Shortness of Breath. negative: Cough, Dry, Hemoptysis, SOB with Excertion, Pleuritic Pain, Sputum, Wheezing Cardiovascular: Chest Pain Gastrointestinal: negative: Nausea, Vomiting, Abdominal Pain, Diarrhea, Constipation, Melena, Hematochezia, Other Genitourinary: negative: Dysuria, Frequency, Incontinence, Hematuria, Retention , Other Musculoskeletal: negative: Neck Pain, Shoulder Pain, Arm Pain, Back Pain, Hand Pain, Leg Pain, Foot Pain, Other Skin: negative: Rash, Lesions, Bahman, Bruising, Other - Medications/Allergies Allergies/Adverse Reactions: Allergies Allergy/AdvReac Type Severity Reaction Status Date / Time No Known Allergies Allergy Verified 04/21/17 08:28 Medications: Current Medications Acetaminophen (Tylenol) 650 mg PO Q4H PRN PRN Reason: Headache/Fever or Pain Hydrocodone Bitart/Acetaminophen ([place] 5/325) 1 tab PO Q4H PRN PRN Reason: Moderate Pain (4-6) Last Admin: 05/01/17 06:42 Dose: 1 tab Al Hydroxide/Mg Hydroxide (Maalox) 30 ml PO Q6H PRN PRN Reason: Heartburn or Indigestion Artificial Tears (Tears Naturale) 0 drop EA EYE PRN PRN PRN Reason: Dry Eyes Aspirin (Aspirin) 325 mg PO DAILY [facility] Last Admin: 05/01/17 09:42 Dose: 325 mg Digoxin (Lanoxin) 0.25 mg SLOW IVP NOW [facility] Digoxin (Lanoxin) 0.125 mg PO DAILY [facility] Enoxaparin Sodium (Lovenox) 120 mg SC 0900,2100 [facility] Last Admin: 05/01/17 09:39 Dose: 120 mg Famotidine (Pepcid) 20 mg PO BID [facility] Last Admin: 05/01/17 09:42 Dose: 20 mg Guaifenesin (Robitussin Sf) 200 mg PO Q4H PRN PRN Reason: Cough Hydralazine HCl (Apresoline) 10 mg SLOW IVP Q4H PRN PRN Reason: Systolic BP > 180 Loperamide HCl (Imodium) 2 mg PO PRN PRN PRN Reason: Diarrhea/Loose Stools Last Admin: 04/30/17 18:34 Dose: 2 mg Loratadine (Claritin) 10 mg PO DAILYPRN PRN PRN Reason: Sinus Symptoms Magnesium Hydroxide (Milk Of Magnesium) 30 ml PO DAILYPRN PRN PRN Reason: Constipation Metoprolol Tartrate (Lopressor) 12.5 mg PO BID [facility] Last Admin: 05/01/17 09:39 Dose: 12.5 mg Mineral Oil/White Petrolatum (Eucerin Cream) 0 gm TOP BIDPRN PRN PRN Reason: Dry Skin Nitroglycerin (Nitrostat) 0.4 mg SL Q5MIN PRN PRN Reason: Chest Pain Ondansetron HCl (Zofran Odt) 4 mg PO Q6H PRN PRN Reason: Nausea/Vomiting Ondansetron HCl (Zofran) 4 mg IVP Q6H PRN PRN Reason: Nausea/Vomiting Phenol (Chloraseptic [place] 180 Ml Bot) 0 ml PO PRN PRN PRN Reason: Sore Throat Senna (Senokot) 2 tab PO HSPRN PRN PRN Reason: Constipation Sodium Chloride ([place] Nasal [place] 0.65%) 0 ml EA NARE QIDPRN PRN PRN Reason: Nasal Congestion Sodium Chloride (Flush - Normal Saline) 10 ml IVF Q12HR NARESH Last Admin: 05/01/17 09:39 Dose: 10 ml Sodium Chloride (Flush - Normal Saline) 10 ml IVF PRN PRN PRN Reason: Saline Flush Zolpidem Tartrate (Ambien) 5 mg PO HSPRN PRN PRN Reason: Insomnia
[2017-05-01] MEDS ORDERED: Digoxin 0.5 MG/2 ML AMP SLOW IVP SCH ×3 (11:00→12:00)
--- NOTE | 2017-05-01 15:55 | CON ---
DATE OF CONSULTATION: 04/30/2017 CARDIOLOGY CONSULTATION REFERRING PHYSICIAN: Raudel Galvez M.D. PRIMARY CARE PHYSICIAN: Александр Steiner D.O. PRIMARY SUPERVISOR [employer] INSTALLATION: Dr. Francis at [facility]. REASON FOR CONSULTATION: Atrial fibrillation with rapid ventricular response. HISTORY OF PRESENT ILLNESS: Mrs. Bender is an 82-year-old female who is regularly followed by [facility] providers. She presents with chest pressure described as heaviness in her chest with associated shortness of breath. It was centrally located substernally and did not radiate. S he denied any exertional component, orthopnea or radiation pattern of her pain. She was having some dizziness with dyspnea associated with this pain. She recently underwent a left reverse shoulder arthroplasty and was diagnosed with atrial fibrillati on prior to her surgery. She was scheduled for initiation of anticoagulation postoperatively under the care of Dr. Francis, but began having these symptoms and presented to the emergency department he re. Evaluation here reveals evidence of deep vein thrombosis and bilateral pulmonary emboli and she is a nticoagulated currently. She is currently rate controlled, but on diltiazem and digoxin. PAST MEDICAL HISTORY: 1. Recently diagnosed atrial fibrillation. 2. Osteoarthritis. PAST SURGICAL HISTORY: 1. Left shoulder replacement 04/23/2017. 2. Heart catheterization. ALLERGIES: No known drug allergies. SOCIAL HISTORY: She lives at home with her family. She denies any tobacco use, ethanol abuse, illi cit or recreational drug use. FAMILY HISTORY: Negative with respect to premature atherosclerosis. CURRENT MEDICATIONS: 1. Aspirin 325 mg daily. 2. Tramadol 50 mg as needed for pain. REVIEW OF SYSTEMS: As per history of present illness. Remainder of 12 system review is negative. PHYSICAL EXAMINATION: VITAL SIGNS: Blood pressure 134/78, pulse 99 and irregularly irregular, respiratory rate 20 and non labored, temperature 98.1, oxygen saturation is 94% on room air. GENERAL: This is a well-developed, well-nourished 82-year-old female, in no acute distres s. She is alert and oriented x4. She answers questions appropriately. HEENT: Head is atraumatic, normocephalic. Pupils are equally round and reactive. Sclerae and conj unctivae are clear. There are no oral lesions. NECK: Supple. No JVD, thyromegaly, carotid bruits. CHEST: Symmetrical inspiration and expiration. HEART: Irregularly irregular with no murmur, S3, S4. PMI nondisplaced, not enlarged. LUNGS: Clear to auscultation in all m[place]. No adventitious sounds appreciated. ABDOMEN: Soft, nontender, nondistended, without mass or organomegaly. Bowel sounds are present in all 4 quadrants. No flank bruits auscultated. EXTREMITIES: 2+ pulses noted bilaterally in upper and lower extremity. Strength 5/5 bilaterally. No clubbing, cyanosis or edema. NEUROLOGIC: Grossly intact with no focal motor deficits appreciated. DATABASE: EKG reveals atrial fibrillation with rapid ventricular response. There are nonspecific T changes. LABORATORY DATA: CBC reveals white count of 6, hemoglobin and hematocrit of 12 and 39, platelet cou nt of 169,000. Differential white blood cells normal. Red cell indices normocytic. Chemistries: Electrolytes are normal. BUN and creatinine are 10 and 0.6. GFR is estimated at 85. LFTs are norm al. Troponins are indeterminately elevated with a peak of 0.098. This is trending down. BNP eleva eneida at 577, TSH is normal. ASSESSMENT: 1. Bilateral pulmonary emboli with documented deep venous thrombosis. 2. Recently diagnosed atrial fibrillation. 3. Osteoarthritis. 4. Recent surgery to repair left shoulder. RECOMMENDATIONS: From a cardiac standpoint, she is stable. The strategy moving forward will be rat e controlled anticoagulation strategy, on oral anticoagulant therapy. We will continue with beta-bl ocker up titrating the dose for optimizing rate control as much as her blood pressure will allow us. We will continue digoxin as well and transition to oral Xarelto for oral anticoagulant therapy for longer term. She will follow up with Dr. Francis for continued cardiovascular care and her primary care physician at [facility] as well. We will follow along with you and appreciate the opportu yonatan to participate in her care.
[2017-05-01] MEDS: Rivaroxaban 10 MG TAB PO SCH (18:29)
[2017-05-01] MEDS: Digoxin 0.5 MG/2 ML AMP SLOW IVP SCH (18:29)
[2017-05-02] MEDS: Digoxin 0.5 MG/2 ML AMP SLOW IVP SCH ×2 (00:30→06:40)
[2017-05-02 05:33] LABS: #Eosinphils 0.3 thou/uL (0.0-0.7); #Lymphocytes 1.1 thou/uL (1.20-3.40); #Monocytes 0.5 thou/uL (0.11-0.59); #Neutrophils 5.8 thou/uL (1.40-6.50); %Basophils 0.4 % (0.0-1.0); %Eosinophils 3.6 % (0.0-10.0); %Lymphocytes 14.2 % (21.0-51.0); %Monocytes 6.7 % (0.0-10.0); Hematocrit 36.8 % (36.0-47.0); Red Blood Cell (RBC) Count 4.09 mill/uL (4.20-5.40); White Blood Cell (WBC) Count 7.7 thou/uL (4.8-10.8)
[2017-05-02 06:00] LABS: Anion Gap 11 mmol/L (10-20); BUN (Urea Nitrogen) 10 mg/dL (9.8-20.1); Calc. Creatinine Clearance 98 mL/min (70-130); Calcium 8.7 mg/dL (7.8-10.44); Carbon Dioxide 26 mmol/L (23-31); Chloride 103 mmol/L (98-107); Estimated GFR-MDRD 87
[2017-05-02] MEDS: HYDROcodone/Acetaminophen 5/325 mg Tablet PO PRN ×2 (06:42→21:55)
[2017-05-02] MEDS ORDERED: traMADol HCl 50 MG TAB PO PRN (07:23)
[2017-05-02] MEDS: Metoprolol Tartrate 25 MG TAB PO SCH ×2 (09:23→21:53)
[2017-05-02] MEDS: Digoxin 0.125 MG TAB PO SCH (09:25)
--- NOTE | 2017-05-02 10:40 | PDOC.PN ---
- Subjective Encounter Start Date: 05/02/17 Encounter Start Time: 07:10 pt is doing well, Patient seen and examined. No new complaints. No overnight events, no PT done yet - Objective Resuscitation Status: Resuscitation Status FULL:Full Resuscitation MAR Reviewed: Yes Vital Signs & Weight: Vital Signs (12 hours) Temp Pulse Resp BP Pulse Ox 05/02/17 09:25 77 05/02/17 09:19 97.9 F 77 18 139/82 92 L 05/02/17 06:40 89 05/02/17 03:58 98.3 F 89 16 126/84 94 L 05/02/17 01:30 92 L 05/02/17 00:30 89 05/02/17 00:00 98.7 F 89 16 125/68 92 L Weight Weight 212 lb 6.4 oz I&O: 05/01/17 05/02/17 05/03/17 06:59 06:59 06:59 Intake Total 918 1420 Output Total 1500 2150 Balance -582 -730 Result Diagrams: 05/02/17 04:34 05/02/17 04:34 Additional Labs: Accuchecks 05/01/17 11:58 POC Glucose 104 EKG Reviewed by me: Yes (afib) Phys Exam - Physical Examination Constitutional: NAD HEENT: PERRLA, moist MMs, sclera anicteric Neck: no JVD, supple Respiratory: no wheezing, no rales, no rhonchi Cardiovascular: no significant murmur, irregular Gastrointestinal: soft, non-tender, no distention, positive bowel sounds Musculoskeletal: no edema, pulses present Neurological: non-focal, normal sensation, moves all 4 limbs Lymphatic: no nodes Psychiatric: normal affect, A&O x 3 Skin: no rash, normal turgor Dx/Plan (1) Acute respiratory failure with hypoxia Code(s): J96.01 - ACUTE RESPIRATORY FAILURE WITH HYPOXIA Status: Resolved (2) Atrial fibrillation Code(s): I48.91 - UNSPECIFIED ATRIAL FIBRILLATION Status: Acute Qualifiers: Atrial fibrillation type: chronic Qualified Code(s): I48.2 - Chronic atrial fibrillation Comment: rate controlled now (3) Bilateral pulmonary embolism Code(s): I26.99 - OTHER PULMONARY EMBOLISM WITHOUT ACUTE COR PULMONALE Status : Acute (4) DVT (deep venous thrombosis) Code(s): I82.409 - ACUTE EMBOLISM AND THOMBOS UNSP DEEP VN UNSP LOWER EXTREMITY Status: Acute Qualifiers: DVT location: lower extremity Affected thrombotic vein of extremity: popliteal Laterality: left (5) Demand ischemia of myocardium Code(s): I24.8 - OTHER FORMS OF ACUTE ISCHEMIC HEART DISEASE Status: Acute (6) Elevated brain natriuretic peptide (BNP) level Code(s): R79.89 - OTHER SPECIFIED ABNORMAL FINDINGS OF BLOOD CHEMISTRY Status : Acute (7) Morbid obesity with BMI of 40.0-44.9, adult Code(s): E66.01 - MORBID (SEVERE) OBESITY DUE TO EXCESS CALORIES; Z68.41 - BODY MASS INDEX (BMI) 40.0-44.9, ADULT Status: Chronic (8) DJD of left shoulder Code(s): M19.012 - PRIMARY OSTEOARTHRITIS, LEFT SHOULDER Status: Chronic Qualifiers: Osteoarthritis type: unspecified Qualified Code(s): M19.012 - Primary osteoarthritis, left shoulder Comment: s/p surgery - Plan cont current plan of care, plan discussed w/ family, PT/OT * today PT/OT * continue xarelto * will monitor one more day to see if any adjustment in medication for her Afib to control rate needed or not * possible discharge tomorrow to home if stable * will repeat labs tomorrow * her FOBT positive but she does not have any low Hb and does not have any symptoms, will not need procedure now but will need monitor. Review of Systems - Review of Systems ENT: negative: Ear Pain, Ear Discharge, Nose Pain, Nose Discharge, Nose Congestion, Mouth Pain, Mouth Swelling, Throat Pain, Throat Swelling, Other Respiratory: negative: Cough, Dry, Shortness of Breath, Hemoptysis, SOB with Excertion, Pleuritic Pain, Sputum, Wheezing Cardiovascular: negative: Chest Pain, Palpitations, Orthopnea, Paroxysmal Noc. Dyspnea, Edema, Light Headedness, Other Gastrointestinal: negative: Nausea, Vomiting, Abdominal Pain, Diarrhea, Constipation, Melena, Hematochezia, Other Genitourinary: negative: Dysuria, Frequency, Incontinence, Hematuria, Retention , Other Musculoskeletal: negative: Neck Pain, Shoulder Pain, Arm Pain, Back Pain, Hand Pain, Leg Pain, Foot Pain, Other Skin: negative: Rash, Lesions, Bahman, Bruising, Other - Medications/Allergies Allergies/Adverse Reactions: Allergies Allergy/AdvReac Type Severity Reaction Status Date / Time No Known Allergies Allergy Verified 04/21/17 08:28 Medications: Current Medications Acetaminophen (Tylenol) 650 mg PO Q4H PRN PRN Reason: Headache/Fever or Pain Hydrocodone Bitart/Acetaminophen ([place] 5/325) 1 tab PO Q4H PRN PRN Reason: Moderate Pain (4-6) Last Admin: 05/02/17 06:42 Dose: 1 tab Al Hydroxide/Mg Hydroxide (Maalox) 30 ml PO Q6H PRN PRN Reason: Heartburn or Indigestion Artificial Tears (Tears Naturale) 0 drop EA EYE PRN PRN PRN Reason: Dry Eyes Aspirin (Aspirin Chewable) 81 mg PO DAILY [facility] Last Admin: 05/02/17 09:24 Dose: 81 mg Calcium/Vitamin D (Caltrate 600 + Vit D) 1 tab PO HS [facility] Digoxin (Lanoxin) 0.125 mg PO DAILY [facility] Last Admin: 05/02/17 09:25 Dose: 0.125 mg Fish Oil (Fish Oil) 1,000 mg PO HS [facility] Guaifenesin (Robitussin Sf) 200 mg PO Q4H PRN PRN Reason: Cough Hydralazine HCl (Apresoline) 10 mg SLOW IVP Q4H PRN PRN Reason: Systolic BP > 180 Loperamide HCl (Imodium) 2 mg PO PRN PRN PRN Reason: Diarrhea/Loose Stools Last Admin: 04/30/17 18:34 Dose: 2 mg Loratadine (Claritin) 10 mg PO DAILYPRN PRN PRN Reason: Sinus Symptoms Magnesium Hydroxide (Milk Of Magnesium) 30 ml PO DAILYPRN PRN PRN Reason: Constipation Metoprolol Tartrate (Lopressor) 12.5 mg PO BID [facility] Last Admin: 05/02/17 09:23 Dose: 12.5 mg Mineral Oil/White Petrolatum (Eucerin Cream) 0 gm TOP BIDPRN PRN PRN Reason: Dry Skin Multivitamins/Zinc (St[place] 600 With Zinc) 1 tab PO HS [facility] Nitroglycerin (Nitrostat) 0.4 mg SL Q5MIN PRN PRN Reason: Chest Pain Ondansetron HCl (Zofran Odt) 4 mg PO Q6H PRN PRN Reason: Nausea/Vomiting Ondansetron HCl (Zofran) 4 mg IVP Q6H PRN PRN Reason: Nausea/Vomiting Pantoprazole Sodium (Protonix) 40 mg PO DAILY [facility] Last Admin: 05/02/17 09:24 Dose: 40 mg Phenol (Chloraseptic [place] 180 Ml Bot) 0 ml PO PRN PRN PRN Reason: Sore Throat Multivit/Folic Acid/Iron ( Vitamin) 1 tab PO HS [facility] Rivaroxaban (Xarelto) 20 mg PO 1800 [facility] Last Admin: 05/01/17 18:29 Dose: 20 mg Senna (Senokot) 2 tab PO HSPRN PRN PRN Reason: Constipation Sodium Chloride ([place] Nasal [place] 0.65%) 0 ml EA NARE QIDPRN PRN PRN Reason: Nasal Congestion Sodium Chloride (Flush - Normal Saline) 10 ml IVF Q12HR [facility] Last Admin: 05/02/17 09:24 Dose: 10 ml Sodium Chloride (Flush - Normal Saline) 10 ml IVF PRN PRN PRN Reason: Saline Flush Tramadol HCl (Ultram) 100 mg PO Q6H PRN PRN Reason: Moderate Pain 4-6 Zolpidem Tartrate (Ambien) 5 mg PO HSPRN PRN PRN Reason: Insomnia
[2017-05-02] MEDS: Rivaroxaban 10 MG TAB PO SCH (17:28)
--- NOTE | 2017-05-02 18:44 | PDOC.CTH ---
Cardiology Progress Note - Subjective No new issues. - Objective Vital Signs Temp Pulse Pulse Pulse Resp BP BP 05/02/17 16:03 97.7 F 73 18 05/02/17 13:39 71 69 121/58 L 128/61 05/02/17 12:39 98.2 F 56 L 18 05/02/17 09:25 77 05/02/17 09:19 97.9 F 77 18 05/02/17 09:00 97.9 F 77 18 BP BP Pulse Ox Pulse Ox Pulse Ox 05/02/17 16:03 157/70 H 94 L 05/02/17 13:39 94 L 94 L 05/02/17 12:39 106/66 94 L 05/02/17 09:25 05/02/17 09:19 139/82 92 L 05/02/17 09:00 92 L Weight 212 lb 6.4 oz 05/01/17 05/02/17 05/03/17 06:59 06:59 06:59 Intake Total 918 1420 540 Output Total 1500 2150 250 Balance -582 -730 290 - Physical Examination General/Neuro: alert & oriented x3, NAD Neck: no JVD present Lungs: unlabored respirations Heart: other: (irreg) Abdomen: NT/ND Extremities: + edema B (1+) - Telemetry Telemetry Rhythm: Afib HR 70's - Labs Result Diagrams: 05/02/17 04:34 05/02/17 04:34 Troponin/CKMB CK-MB (CK-2) 2.2 ng/mL (0-6.6) 04/30/17 06:09 Troponin I 0.045 ng/mL (< 0.028) H 04/30/17 06:09 - Assessment/Plan 1. Afib RVR 2. Acute PE/DVT 3. Recent left shoulder surgery PLAN: - Continue rate control with BB and dig - Xarelto for prophylxis and PE treatement.
[2017-05-02] MEDS ORDERED: Fish Oil 1,000 MG CAP PO SCH (21:00)
[2017-05-02] MEDS ORDERED: Stress 600 With Zinc 1 TAB PO SCH (21:00)
[2017-05-02] MEDS ORDERED: Calcium Carbonate + Vit D 1 TAB PO SCH (21:00)
[2017-05-02] MEDS ORDERED: Prenatal Vitamin 1 TAB PO SCH (21:00)
[2017-05-03 05:28] LABS: #Eosinphils 0.3 thou/uL (0.0-0.7); #Lymphocytes 1.9 thou/uL (1.20-3.40); #Monocytes 0.6 thou/uL (0.11-0.59); #Neutrophils 4.8 thou/uL (1.40-6.50); %Basophils 0.6 % (0.0-1.0); %Eosinophils 4.5 % (0.0-10.0); %Monocytes 8.1 % (0.0-10.0); Hematocrit 36.5 % (36.0-47.0); Mean Platelet Volume 7.2 fL (7.4-10.4); Red Blood Cell (RBC) Count 4.03 mill/uL (4.20-5.40); White Blood Cell (WBC) Count 7.7 thou/uL (4.8-10.8)
[2017-05-03 05:35] LABS: Prothrombin Time 18.5 SEC (12.0-14.7)
[2017-05-03 05:36] LABS: PTT 40.5 SEC (22.9-36.1)
[2017-05-03 05:40] LABS: Anion Gap 9 mmol/L (10-20); BUN (Urea Nitrogen) 9 mg/dL (9.8-20.1); Calc. Creatinine Clearance 106 mL/min (70-130); Calcium 8.9 mg/dL (7.8-10.44); Carbon Dioxide 29 mmol/L (23-31); Chloride 102 mmol/L (98-107); Estimated GFR-MDRD Greater than 90
[2017-05-03] MEDS: Metoprolol Tartrate 25 MG TAB PO SCH (09:46)
[2017-05-03] MEDS: Digoxin 0.125 MG TAB PO SCH (09:47)
--- NOTE | 2017-05-03 12:42 | PDOC.PN ---
- Subjective Encounter Start Date: 05/03/17 Encounter Start Time: 10:10 c/o right upper extrimity pain and swelling, no fever, has flu and pneumonia shot on that side and after she noted that - Objective Resuscitation Status: Resuscitation Status FULL:Full Resuscitation MAR Reviewed: Yes Vital Signs & Weight: Vital Signs (12 hours) Temp Pulse Resp BP BP Pulse Ox 05/03/17 09:47 79 05/03/17 09:42 98.4 F 79 16 121/57 L 96 05/03/17 04:00 97.6 F 61 16 120/59 L 92 L Weight Weight 220 lb I&O: 05/02/17 05/03/17 05/04/17 06:59 06:59 06:59 Intake Total 1420 1020 Output Total 2150 250 Balance -730 770 Result Diagrams: 05/03/17 05:03 05/03/17 05:03 Radiology Reviewed by me: Yes EKG Reviewed by me: Yes (afib) Phys Exam - Physical Examination Constitutional: NAD HEENT: PERRLA, moist MMs, sclera anicteric Neck: no JVD, supple Respiratory: no wheezing, no rales, no rhonchi Cardiovascular: no significant murmur, no rub, irregular Gastrointestinal: soft, non-tender, no distention, positive bowel sounds Musculoskeletal: no edema, pulses present right upper extrtimity with mild redness and swelling Neurological: non-focal, normal sensation, moves all 4 limbs Psychiatric: normal affect, A&O x 3 Skin: no rash, normal turgor Dx/Plan (1) Acute respiratory failure with hypoxia Code(s): J96.01 - ACUTE RESPIRATORY FAILURE WITH HYPOXIA Status: Resolved (2) Atrial fibrillation Code(s): I48.91 - UNSPECIFIED ATRIAL FIBRILLATION Status: Acute Qualifiers: Atrial fibrillation type: chronic Qualified Code(s): I48.2 - Chronic atrial fibrillation Comment: rate controlled now (3) Bilateral pulmonary embolism Code(s): I26.99 - OTHER PULMONARY EMBOLISM WITHOUT ACUTE COR PULMONALE Status : Acute (4) DVT (deep venous thrombosis) Code(s): I82.409 - ACUTE EMBOLISM AND THOMBOS UNSP DEEP VN UNSP LOWER EXTREMITY Status: Acute Qualifiers: DVT location: lower extremity Affected thrombotic vein of extremity: popliteal Laterality: left (5) Demand ischemia of myocardium Code(s): I24.8 - OTHER FORMS OF ACUTE ISCHEMIC HEART DISEASE Status: Acute (6) Elevated brain natriuretic peptide (BNP) level Code(s): R79.89 - OTHER SPECIFIED ABNORMAL FINDINGS OF BLOOD CHEMISTRY Status : Acute (7) Morbid obesity with BMI of 40.0-44.9, adult Code(s): E66.01 - MORBID (SEVERE) OBESITY DUE TO EXCESS CALORIES; Z68.41 - BODY MASS INDEX (BMI) 40.0-44.9, ADULT Status: Chronic (8) DJD of left shoulder Code(s): M19.012 - PRIMARY OSTEOARTHRITIS, LEFT SHOULDER Status: Chronic Qualifiers: Osteoarthritis type: unspecified Qualified Code(s): M19.012 - Primary osteoarthritis, left shoulder Comment: s/p surgery - Plan cont current plan of care, plan discussed w/ family * will check right UE US * overall stable and improving * continue xarelto * possible discharge later today * medication reviewed as below * symptomatic treatment. Review of Systems - Review of Systems ENT: negative: Ear Pain, Ear Discharge, Nose Pain, Nose Discharge, Nose Congestion, Mouth Pain, Mouth Swelling, Throat Pain, Throat Swelling, Other Respiratory: negative: Cough, Dry, Shortness of Breath, Hemoptysis, SOB with Excertion, Pleuritic Pain, Sputum, Wheezing Cardiovascular: negative: Chest Pain, Palpitations, Orthopnea, Paroxysmal Noc. Dyspnea, Edema, Light Headedness, Other Gastrointestinal: negative: Nausea, Vomiting, Abdominal Pain, Diarrhea, Constipation, Melena, Hematochezia, Other Genitourinary: negative: Dysuria, Frequency, Incontinence, Hematuria, Retention , Other Musculoskeletal: negative: Neck Pain, Shoulder Pain, Arm Pain, Back Pain, Hand Pain, Leg Pain, Foot Pain, Other Skin: negative: Rash, Lesions, Bahman, Bruising, Other - Medications/Allergies Allergies/Adverse Reactions: Allergies Allergy/AdvReac Type Severity Reaction Status Date / Time No Known Allergies Allergy Verified 04/21/17 08:28 Medications: Current Medications Acetaminophen (Tylenol) 650 mg PO Q4H PRN PRN Reason: Headache/Fever or Pain Hydrocodone Bitart/Acetaminophen ([place] 5/325) 1 tab PO Q4H PRN PRN Reason: Moderate Pain (4-6) Last Admin: 05/02/17 21:55 Dose: 1 tab Al Hydroxide/Mg Hydroxide (Maalox) 30 ml PO Q6H PRN PRN Reason: Heartburn or Indigestion Artificial Tears (Tears Naturale) 0 drop EA EYE PRN PRN PRN Reason: Dry Eyes Aspirin (Aspirin Chewable) 81 mg PO DAILY [facility] Last Admin: 05/03/17 09:46 Dose: 81 mg Calcium/Vitamin D (Caltrate 600 + Vit D) [address] [facility] Last Admin: 05/02/17 21:53 Dose: 1 tab Digoxin (Lanoxin) 0.125 mg PO DAILY [facility] Last Admin: 05/03/17 09:47 Dose: 0.125 mg Fish Oil (Fish Oil) 1,[address] [facility] Last Admin: 05/02/17 21:53 Dose: 1,000 mg Guaifenesin (Robitussin Sf) 200 mg PO Q4H PRN PRN Reason: Cough Hydralazine HCl (Apresoline) 10 mg SLOW IVP Q4H PRN PRN Reason: Systolic BP > 180 Loperamide HCl (Imodium) 2 mg PO PRN PRN PRN Reason: Diarrhea/Loose Stools Last Admin: 04/30/17 18:34 Dose: 2 mg Loratadine (Claritin) 10 mg PO DAILYPRN PRN PRN Reason: Sinus Symptoms Magnesium Hydroxide (Milk Of Magnesium) 30 ml PO DAILYPRN PRN PRN Reason: Constipation Metoprolol Tartrate (Lopressor) 12.5 mg PO BID [facility] Last Admin: 05/03/17 09:46 Dose: 12.5 mg Mineral Oil/White Petrolatum (Eucerin Cream) 0 gm TOP BIDPRN PRN PRN Reason: Dry Skin Multivitamins/Zinc (Stress 600 With Zinc) [address] [facility] Last Admin: 05/02/17 21:53 Dose: 1 tab Nitroglycerin (Nitrostat) 0.4 mg SL Q5MIN PRN PRN Reason: Chest Pain Ondansetron HCl (Zofran Odt) 4 mg PO Q6H PRN PRN Reason: Nausea/Vomiting Ondansetron HCl (Zofran) 4 mg IVP Q6H PRN PRN Reason: Nausea/Vomiting Pantoprazole Sodium (Protonix) 40 mg PO DAILY [facility] Last Admin: 05/03/17 09:47 Dose: 40 mg Phenol (Chloraseptic Round O 180 Ml Bot) 0 ml PO PRN PRN PRN Reason: Sore Throat Multivit/Folic Acid/Iron ( Vitamin) 1 tab PO HS [facility] Last Admin: 05/02/17 21:55 Dose: 1 tab Rivaroxaban (Xarelto) 20 mg PO 1800 [facility] Last Admin: 05/02/17 17:28 Dose: 20 mg Senna (Senokot) 2 tab PO HSPRN PRN PRN Reason: Constipation Sodium Chloride ([place] Nasal Round O 0.65%) 0 ml EA NARE QIDPRN PRN PRN Reason: Nasal Congestion Sodium Chloride (Flush - Normal Saline) 10 ml IVF Q12HR [facility] Last Admin: 05/03/17 09:46 Dose: 10 ml Sodium Chloride (Flush - Normal Saline) 10 ml IVF PRN PRN PRN Reason: Saline Flush Tramadol HCl (Ultram) 100 mg PO Q6H PRN PRN Reason: Moderate Pain 4-6 Zolpidem Tartrate (Ambien) 5 mg PO HSPRN PRN PRN Reason: Insomnia
--- NOTE | 2017-05-03 12:46 | ULT ---
RIGHT UPPER EXTREMITY VENOUS DOPPLER: HISTORY: Pain. COMPARISON: None. TECHNIQUE: Real-time, moody scale, color Doppler, and spectral analysis right upper extremity venous system was performed. The internal jugular, subclavian and axillary veins, as well as the brachiobasilic and c ephalic veins are interrogated. FINDINGS: Normal flow, augmentation, and compression. No deep venous thrombosis. In the dorsal forearm is some extensive interstitial and subcutaneous fat edema. IMPRESSION: Deep venous thrombosis. POS: LILLIAN
[2017-05-03 13:20] VITALS: BP 133/68; TEMP 98.7
--- NOTE | 2017-05-03 13:20 | DIS ---
DATE OF ADMISSION: 04/29/2017 DATE OF DISCHARGE: 05/03/2017 PRIMARY CARE PHYSICIAN: Dr. Meyer. DISCHARGE DISPOSITION: Home. PRIMARY DISCHARGE DIAGNOSES: 1. Atrial fibrillation with rapid ventricular response. 2. Bilateral pulmonary embolism. 3. Demand ischemia of myocardium. 4. Left lower extremity deep vein thrombosis. 5. Acute respiratory failure with hypoxia, resolved. SECONDARY DISCHARGE DIAGNOSES: History of degenerative joint disease of left shoulder required surgery, morbid obesity. PRIMARY PROCEDURE/OPERATION: None. RADIOLOGICAL INVESTIGATION: Chest x-ray showed no acute process. CT angio showed bilateral pulmonary embolism. Ultrasound was positive for deep vein thrombosis. Echocardiography showed normal EF, Upper extremity ultrasound was negative for any DVT. SIGNIFICANT LABS: WBC 7.7, hemoglobin 11.5, platelet 226. INR 1.5. D-dimer 4.04. Sodium 136, potassium 4.1, BUN 9, creatinine 0.62, calcium 8.9. CK-MB 2.2, troponin 0.045. LDL 87. TSH 1.42. Stool for guaiac positive. DISCHARGE MEDICATIONS: Tylenol 650 mg q.4 hourly p.r.n., aspirin 81 mg p.o. daily, calcium with vitamin D one tablet p.o. at bedtime, digoxin 0.125 mg p.o. daily, [place] 7.5 one or two tablets q.4 hourly p.r.n., metoprolol 25 mg p.o. b.i.d., fish oil 1000 mg p.o. at bedtime, vitamin 1 tablet p.o. daily, Protonix 40 mg p.o. daily, Xarelto 20 mg p.o. daily, vitamin B complex 1 capsule p.o. daily, tramadol 100 mg p.o. q.6 hourly p.r.n. CONTRAINDICATIONS: None. CODE STATUS: FULL CODE. INPATIENT CONSULTANTS: Dr. Pérez was consulted while in hospital. TEST RESULTS PENDING ON DISCHARGE: None. ALLERGIES: No known drug allergies. DISCHARGE PLAN: Post hospital, the patient will follow up with primary care physician at [facility]. HOSPITAL COURSE: An 82-year-old female who has DJD of left shoulder and patient had left shoulder arthroplasty done by Dr. Andrew and during the perioperative period, the patient was immobilized. Patient also had atrial fibrillation, which was diagnosed in preoperative evaluation, but rate was under control. At this time, the patient came to the emergency room with complaint of chest pain, shortness of breath. She had a CT angio chest, which showed bilateral pulmonary embolism. Subsequently, we did ultrasound of lower extremity that was positive for deep vein thrombosis as well. Patient also had atrial fibrillation with rapid ventricular response and that is why she was treated with Cardizem in the emergency room with a significant response after that we changed to metoprolol while in hospital. Her heart rate was fluctuating in a higher rate and that is why we loaded with digoxin while in hospital and on discharge, we prescribed digoxin as well. Cardiology was following while in hospital. At this point, only rate control was strategy. Patient also has Cardiology at [facility] and she will follow up with them as an outpatient basis for further evaluation and treatment as an outpatient basis. Echocardiography showed normal EF. On the day of discharge, the patient was complaining of swelling and erythema of her right upper extremity and that is why we did an ultrasound which was negative for any DVT. Whatever patient's family member was concerned about, was related with fat edema. At this point, the patient does not need any antibiotic therapy. Initially, the patient was treated with Lovenox. Subsequently, we discussed the risk and benefit of newer anticoagulant therapy with Xarelto and family member decided to go home with Xarelto therapy. Risk and benefit of Xarelto was also discussed. At this point, patient is medically stable. This patient had a guaiac positive stool, but she did not have any melena or hematochezia and that is why we did not pursue any GI workup at this point, but patient is given Protonix therapy. Overall, the patient is doing very well. She does not require any home oxygen, her oxygen saturation improved. Her chest pain resolved and she is doing very well with therapy as well. All new medication prescriptions sent to her pharmacy. The patient is seen and examined at bedside today. Please see my progress note from today for further details. Total time spent on discharge day more than 30 minutes MTDD
== END 2017-05-03 15:30 | disposition home or self-care (01) | DRG 175 ==
LOC: ERS 13:17 → 2NO 15:37
PROVIDERS: ADMIT Internal Medicine; ATTEND Internal Medicine
DX: I26.99 Other pulmonary embolism without acute cor pulmonale (principal); J96.01 Acute respiratory failure with hypoxia; I95.9 Hypotension, unspecified; I24.8 Other forms of acute ischemic heart disease; Z68.41 Body mass index [BMI] 40.0-44.9, adult; E66.01 Morbid (severe) obesity due to excess calories; I48.2 Chronic atrial fibrillation; I82.432 Acute embolism and thrombosis of left popliteal vein; Z79.82 Long term (current) use of aspirin; Z23 Encounter for immunization; Z96.612 Presence of left artificial shoulder joint; R19.5 Other fecal abnormalities; Z47.1 Aftercare following joint replacement surgery
CPT/HCPCS: 36415; 36416; 71010; 71275; 80048; 80053; 80061; 82274; 82553; 83690; 83735; 83880; 84443; 84484; 85025; 85379; 85610; 85730; 90471; 90682; 90732; 93005; 93306; 93970; 94760; 96361; 96365; 96372; 96375; A4216; G0008; G0009; G8978-GP-CJ; G8979-GP-CJ; G8980-GP-CJ; J1160; J1650; J7050; Q2036